=== PATIENT | female | born 1960 | race Caucasian/White ===

== ENCOUNTER 2017-09-05 05:45 | Day surgery (SDC) | payer OTHER ==
[2017-09-04 17:52] VITALS: BMI 18.0
[2017-09-05] MEDS ORDERED: KETAMINE HCL 500 MG/10 ML VIAL ONE (07:02)
--- NOTE | 2017-09-05 07:21 | HP ---
Admitting History and Physical - Admission History of Present Illness: patient is a 56 y/o female with a past medical history of borderline personality disorder and etoh dependency. Patient presents for ect, she was recently discharged from [facility] on 09/04/17 following a 5 week admission. She received 18 ect treatment at [facility]. She reports multiple admission to psychiatric hospitals in the past. She denies any suicidal or homicidal ideation, visual or auditory hallucinations. History Source: Patient - Smoking History Smoking history: Current every day smoker Have you smoked in the past 12 months: Yes If you are a former smoker, when did you quit?: WAS IN HOSPITAL X 2 MONTHS, D/C TODAY SMOKED " A LITTLE " - Alcohol/Substance Use Hx Alcohol Use: No (DENIES) Home Medications - Allergies Allergies/Adverse Reactions: Allergies Allergy/AdvReac Type Severity Reaction Status Date / Time codeine Allergy Severe Swelling Verified 09/04/17 17:36 sulfamethoxazole Allergy Severe Rash Verified 09/04/17 17:36 [From Bactrim] trimethoprim [From Bactrim] Allergy Severe Rash Verified 09/04/17 17:36 - Home Medications Home Medications: Ambulatory Orders Lamotrigine [Lamictal] 25 mg PO DAILY 09/04/17 [place] Carbonate [Eskalith -] 450 mg PO DAILY 09/04/17 Multivitamins [Tab-A-Vit -] 1 tab PO DAILY 09/04/17 Trazodone HCl 100 mg PO HS 09/04/17 Family Disease History - Family Disease History Family Disease History: Heart Disease: Father (, alcoholism), Other: Mother (cancer, ), Sister (alive, cancer) Review of Systems - Review of Systems Constitutional: reports: No Symptoms Eyes: reports: No Symptoms HENT: reports: No Symptoms Neck: reports: No Symptoms Cardiovascular: reports: No Symptoms Respiratory: reports: No Symptoms Gastrointestinal: reports: No Symptoms Genitourinary: reports: No Symptoms Musculoskeletal: reports: No Symptoms Integumentary: reports: No Symptoms Neurological: reports: No Symptoms Endocrine: reports: No Symptoms Hematology/Lymphatic: reports: No Symptoms Psychiatric: reports: Anxiety Physical Examination Vital Signs: Vital Signs Temperature 97.8 F 09/05/17 06:07 Pulse Rate 69 09/05/17 06:07 Respiratory Rate 18 09/05/17 06:07 Blood Pressure 118/65 09/05/17 06:07 O2 Sat by Pulse Oximetry (%) 98 09/05/17 06:07 Constitutional: Yes: Well Nourished, No Distress, Calm Eyes: Yes: WNL, Conjunctiva Clear, EOM Intact HENT: Yes: WNL, Atraumatic, Normocephalic Neck: Yes: WNL, Supple, Trachea Midline Cardiovascular: Yes: WNL, Regular Rate and Rhythm, S1, S2 Respiratory: Yes: WNL, Regular, CTA Bilaterally Gastrointestinal: Yes: WNL, Normal Bowel Sounds, Soft ...Rectal Exam: Yes: Deferred Renal/: Yes: WNL Breast(s): Yes: WNL Musculoskeletal: Yes: WNL Extremities: Yes: WNL Edema: No Peripheral Pulses WNL: Yes Integumentary: Yes: WNL Neurological: Yes: WNL, Alert, Oriented ...Motor Strength: WNL Psychiatric: Yes: WNL, Alert, Oriented, Agitated, Other Labs: 07/14 Imaging - Results EKG: Image Reviewed, Other (nsr) Assessment/Plan patient is a 56 y/o female that presents for ect, labs and ekg reviewed patient is medically optimized for procedure informed consent, risks/benefits to be obtained by Dr Forrest
[2017-09-05] MEDS ORDERED: ONDANSETRON 4 MG/2 ML VIAL IVPUSH PRN (08:09)
[2017-09-05 08:43] VITALS: TEMP 98.1
[2017-09-05 10:12] VITALS: BP 120/70; PULSE 63
== END 2017-09-05 09:10 | disposition home or self-care (01) ==
LOC: FECT 05:45
PROVIDERS: ATTEND Psychiatry & Neurology Psychiatry
PROC: GZB4ZZZ Other Electroconvulsive Therapy (ICD-10-PCS; principal; 2017-09-05 07:15)
DX: F33.2 Major depressive disorder, recurrent severe without psychotic features (principal)
CPT/HCPCS: 90870; 94760

== ENCOUNTER 2017-09-09 05:43 | Day surgery (SDC) | payer OTHER ==
[2017-09-05 10:52] VITALS: BMI 18.0
[2017-09-09] MEDS ORDERED: KETAMINE HCL 500 MG/10 ML VIAL ONE (07:29)
[2017-09-09 08:26] VITALS: PULSE 76; TEMP 98.1
[2017-09-09 08:53] VITALS: BP 132/68
[2017-09-09] MEDS ORDERED: ONDANSETRON 4 MG/2 ML VIAL IVPUSH PRN (13:05)
[2017-09-09] MEDS ORDERED: LACTATED RINGERS SOLUTION 1,000 ML IV SCH (13:15)
== END 2017-09-09 08:55 | disposition home or self-care (01) ==
LOC: FECT 05:43
PROVIDERS: ATTEND Psychiatry & Neurology Psychiatry
PROC: GZB4ZZZ Other Electroconvulsive Therapy (ICD-10-PCS; principal; 2017-09-09 07:30)
DX: F33.2 Major depressive disorder, recurrent severe without psychotic features (principal)
CPT/HCPCS: 90870; 94760

== ENCOUNTER 2017-09-12 05:43 | Day surgery (SDC) | payer OTHER ==
[2017-09-09 13:34] VITALS: BMI 18.0
[2017-09-12] MEDS ORDERED: KETAMINE HCL 500 MG/10 ML VIAL ONE (06:59)
[2017-09-12 07:57] VITALS: TEMP 99
[2017-09-12] MEDS ORDERED: ONDANSETRON 4 MG/2 ML VIAL IVPUSH PRN (08:30)
[2017-09-12] MEDS ORDERED: PROMETHAZINE HCL 25 MG/1 ML VIAL IVPUSH PRN (08:30)
[2017-09-12] MEDS ORDERED: LACTATED RINGERS SOLUTION 1,000 ML IV SCH (08:30)
[2017-09-12 08:41] VITALS: BP 112/66; PULSE 66
== END 2017-09-12 08:30 | disposition home or self-care (01) ==
LOC: FECT 05:43
PROVIDERS: ATTEND Psychiatry & Neurology Psychiatry
PROC: GZB4ZZZ Other Electroconvulsive Therapy (ICD-10-PCS; principal; 2017-09-12 07:15)
DX: F33.2 Major depressive disorder, recurrent severe without psychotic features (principal)
CPT/HCPCS: 90870; 94760

== ENCOUNTER 2017-09-16 05:46 | Day surgery (SDC) | payer OTHER ==
[2017-09-12 12:37] VITALS: BMI 18.0
[2017-09-16] MEDS ORDERED: KETAMINE HCL 500 MG/10 ML VIAL ONE (07:06)
[2017-09-16 07:56] VITALS: TEMP 98.8
[2017-09-16 08:26] VITALS: BP 128/66; PULSE 71
[2017-09-16] MEDS ORDERED: ONDANSETRON 4 MG/2 ML VIAL IVPUSH PRN (12:57)
[2017-09-16] MEDS ORDERED: LACTATED RINGERS SOLUTION 1,000 ML IV SCH (13:00)
== END 2017-09-16 08:45 | disposition home or self-care (01) ==
LOC: FECT 05:46
PROVIDERS: ATTEND Psychiatry & Neurology Psychiatry
PROC: GZB4ZZZ Other Electroconvulsive Therapy (ICD-10-PCS; principal; 2017-09-16 07:45)
DX: F33.2 Major depressive disorder, recurrent severe without psychotic features (principal)
CPT/HCPCS: 90870; 94760

== ENCOUNTER 2017-09-20 05:46 | Day surgery (SDC) | payer OTHER ==
[2017-09-16 12:06] VITALS: BMI 24.3
[2017-09-20] MEDS ORDERED: KETAMINE HCL 500 MG/10 ML VIAL ONE (07:04)
[2017-09-20] MEDS ORDERED: ONDANSETRON 4 MG/2 ML VIAL IVPUSH PRN (08:57)
[2017-09-20] MEDS ORDERED: LACTATED RINGERS SOLUTION 1,000 ML IV SCH (09:00)
[2017-09-20 09:01] VITALS: BP 129/68; PULSE 62; TEMP 97.9
== END 2017-09-20 09:05 | disposition home or self-care (01) ==
LOC: FECT 05:46
PROVIDERS: ATTEND Psychiatry & Neurology Psychiatry
PROC: GZB4ZZZ Other Electroconvulsive Therapy (ICD-10-PCS; principal; 2017-09-20 08:00)
DX: F33.2 Major depressive disorder, recurrent severe without psychotic features (principal)
CPT/HCPCS: 90870; 94760

== ENCOUNTER 2017-09-24 05:49 | Day surgery (SDC) | payer OTHER ==
[2017-09-23 09:02] VITALS: BMI 24.3
[2017-09-24 06:16] VITALS: TEMP 98.4
[2017-09-24] MEDS ORDERED: KETAMINE HCL 500 MG/10 ML VIAL ONE (07:22)
[2017-09-24 08:55] VITALS: BP 112/61; PULSE 64
== END 2017-09-24 09:00 | disposition home or self-care (01) ==
LOC: FECT 05:49
PROVIDERS: ATTEND Psychiatry & Neurology Psychiatry
PROC: GZB4ZZZ Other Electroconvulsive Therapy (ICD-10-PCS; principal; 2017-09-24 08:30)
DX: F33.2 Major depressive disorder, recurrent severe without psychotic features (principal)
CPT/HCPCS: 90870; 94760

== ENCOUNTER 2017-10-02 05:45 | Day surgery (SDC) | payer OTHER ==
[2017-10-02 06:08] VITALS: BMI 24.3
[2017-10-02] MEDS ORDERED: KETAMINE HCL 500 MG/10 ML VIAL ONE (06:58)
[2017-10-02 07:52] VITALS: TEMP 97.8
[2017-10-02 08:18] VITALS: BP 124/74; PULSE 70
== END 2017-10-02 08:22 | disposition home or self-care (01) ==
LOC: FECT 05:45
PROVIDERS: ATTEND Psychiatry & Neurology Psychiatry
PROC: GZB4ZZZ Other Electroconvulsive Therapy (ICD-10-PCS; principal; 2017-10-02 07:15)
DX: F33.2 Major depressive disorder, recurrent severe without psychotic features (principal)
CPT/HCPCS: 90870; 94760

== ENCOUNTER 2017-10-09 05:44 | Day surgery (SDC) | payer OTHER ==
[2017-10-04 12:48] VITALS: BMI 24.3
--- NOTE | 2017-10-09 07:09 | HP ---
Admitting History and Physical - Admission History of Present Illness: patient is a 56 y/o female with a past medical history of borderline personality disorder and etoh dependency. Patient reports no improvement in anxiety since starting ect, she denies any changes in medications or recent illnesses. Patient is extremely anxious throughout the exam and reluctant to answer questions. History Source: Patient Limitations to Obtaining History: No Limitations - Smoking History Smoking history: Current every day smoker Have you smoked in the past 12 months: Yes If you are a former smoker, when did you quit?: WAS IN HOSPITAL X 2 MONTHS, D/C TODAY SMOKED " A LITTLE " - Alcohol/Substance Use Hx Alcohol Use: No History of Substance Use: reports: None - Social History Usual Living Arrangement: Yes: With Spouse ADL: Independent History of Recent Travel: No Home Medications - Allergies Allergies/Adverse Reactions: Allergies Allergy/AdvReac Type Severity Reaction Status Date / Time codeine Allergy Severe Swelling Verified 09/04/17 17:36 sulfamethoxazole Allergy Severe Rash Verified 09/04/17 17:36 [From Bactrim] trimethoprim [From Bactrim] Allergy Severe Rash Verified 09/04/17 17:36 - Home Medications Home Medications: Ambulatory Orders Lamotrigine [Lamictal] 200 mg PO HS 09/04/17 [place] Carbonate [Eskalith -] 450 mg PO HS 09/04/17 Multivitamins [Multivit ([facility] Formulary)] 1 tab PO DAILY 09/04/17 Trazodone HCl 200 mg PO HS 09/04/17 Hydroxyzine HCl [Atarax -] 25 mg PO QID PRN 09/20/17 Trazodone HCl 100 mg PO PRN PRN 09/20/17 Family Disease History - Family Disease History Family Disease History: Heart Disease: Father (, alcoholism), Other: Mother (cancer, ), Sister (alive, cancer) Review of Systems - Review of Systems Constitutional: reports: No Symptoms Eyes: reports: No Symptoms HENT: reports: No Symptoms Neck: reports: No Symptoms Cardiovascular: reports: No Symptoms Respiratory: reports: No Symptoms Gastrointestinal: reports: No Symptoms Genitourinary: reports: No Symptoms Musculoskeletal: reports: No Symptoms Integumentary: reports: No Symptoms Neurological: reports: No Symptoms Endocrine: reports: No Symptoms Hematology/Lymphatic: reports: No Symptoms Psychiatric: reports: Anxiety Physical Examination Vital Signs: Vital Signs Temperature 98.3 F 12/13/17 06:23 Pulse Rate 62 10/09/17 06:23 Respiratory Rate 18 10/09/17 06:23 Blood Pressure 109/59 10/09/17 06:23 O2 Sat by Pulse Oximetry (%) 100 10/09/17 06:23 Constitutional: Yes: Well Nourished, No Distress, Calm Eyes: Yes: WNL, Conjunctiva Clear, EOM Intact HENT: Yes: WNL, Atraumatic, Normocephalic Neck: Yes: WNL, Supple, Trachea Midline Cardiovascular: Yes: WNL, Regular Rate and Rhythm, S1, S2 Respiratory: Yes: WNL, Regular, CTA Bilaterally Gastrointestinal: Yes: WNL, Normal Bowel Sounds, Soft ...Rectal Exam: Yes: Deferred Renal/: Yes: WNL Breast(s): Yes: WNL Musculoskeletal: Yes: WNL Extremities: Yes: WNL Edema: No Peripheral Pulses WNL: Yes Peripheral Pulses: Left Radial: 4+, Right Radial: 4+, Left Doralis Pedis: 3+, Right Dorsalis Pedis: 3+, Left Femoral: 3+, Right Femoral: 3+ Integumentary: Yes: WNL Neurological: Yes: WNL, Alert, Oriented, Other (fine hand tremors noted billateraly) ...Motor Strength: WNL Psychiatric: Yes: WNL, Alert, Oriented, Agitated Labs: reviewed 09/13 Imaging - Results EKG: Image Reviewed, Other (nsr no ectoy noted) Assessment/Plan patient is a 57 y/o female that presents for ect, labs and ekg reviewed, patient is extremely anxious throughout exam with fine hand tremors noted bilaterally to upper extremities, patient is extremely reluctant to answer questions in regards to alcohol use, case discused with Dr Forrest. patient is moderate risk for procedure. informed consent/risks/benefits to be obtained by Dr Forrest.
[2017-10-09 08:19] VITALS: TEMP 98.7
[2017-10-09 08:41] VITALS: BP 110/66; PULSE 61
== END 2017-10-09 08:40 | disposition home or self-care (01) ==
LOC: FECT 05:44
PROVIDERS: ATTEND Psychiatry & Neurology Psychiatry
PROC: GZB4ZZZ Other Electroconvulsive Therapy (ICD-10-PCS; principal; 2017-10-09 07:30)
DX: F33.2 Major depressive disorder, recurrent severe without psychotic features (principal)
CPT/HCPCS: 90870; 94760

== ENCOUNTER 2017-10-17 06:10 | Day surgery (SDC) | payer OTHER ==
[2017-10-10 15:07] VITALS: BMI 24.3
[2017-10-17 08:33] VITALS: TEMP 97.8
[2017-10-17 09:09] VITALS: BP 120/72; PULSE 64
[2017-10-17] MEDS ORDERED: ONDANSETRON 4 MG/2 ML VIAL IVPUSH PRN (09:35)
[2017-10-17] MEDS ORDERED: PROMETHAZINE HCL 25 MG/1 ML VIAL IVPB PRN (09:35)
[2017-10-17] MEDS ORDERED: LACTATED RINGERS SOLUTION 1,000 ML IV SCH (09:45)
== END 2017-10-17 09:22 | disposition home or self-care (01) ==
LOC: FECT 06:10
PROVIDERS: ATTEND Psychiatry & Neurology Psychiatry
PROC: GZB4ZZZ Other Electroconvulsive Therapy (ICD-10-PCS; principal; 2017-10-17 08:15)
DX: F33.2 Major depressive disorder, recurrent severe without psychotic features (principal)
CPT/HCPCS: 90870; 94760

== ENCOUNTER 2017-10-24 05:48 | Day surgery (SDC) | payer OTHER ==
[2017-10-18 13:23] VITALS: BMI 24.3
[2017-10-24] MEDS ORDERED: KETAMINE HCL 500 MG/10 ML VIAL ONE (06:56)
[2017-10-24] MEDS ORDERED: oxyCODONE HCL 5 MG TABLET PO PRN (07:08)
[2017-10-24] MEDS ORDERED: LACTATED RINGERS SOLUTION 1,000 ML IV SCH (07:15)
[2017-10-24 08:13] VITALS: TEMP 97.9
[2017-10-24 08:51] VITALS: BP 133/73; PULSE 77
== END 2017-10-24 08:30 | disposition home or self-care (01) ==
LOC: FECT 05:48
PROVIDERS: ATTEND Psychiatry & Neurology Psychiatry
PROC: GZB4ZZZ Other Electroconvulsive Therapy (ICD-10-PCS; principal; 2017-10-24 08:15)
DX: F33.2 Major depressive disorder, recurrent severe without psychotic features (principal)
CPT/HCPCS: 90870; 94760

== ENCOUNTER 2017-11-05 05:48 | Day surgery (SDC) | payer OTHER ==
[2017-10-25 11:20] VITALS: BMI 24.3
[2017-11-05 07:08] VITALS: TEMP 98.3
[2017-11-05] MEDS ORDERED: KETAMINE HCL 500 MG/10 ML VIAL ONE (08:10)
[2017-11-05 10:11] VITALS: BP 122/72; PULSE 86
== END 2017-11-05 09:55 | disposition home or self-care (01) ==
LOC: FECT 05:48
PROVIDERS: ATTEND Psychiatry & Neurology Psychiatry
PROC: GZB4ZZZ Other Electroconvulsive Therapy (ICD-10-PCS; principal; 2017-11-05 08:30)
DX: F33.2 Major depressive disorder, recurrent severe without psychotic features (principal)
CPT/HCPCS: 90870; 94760

== ENCOUNTER 2017-11-12 05:41 | Day surgery (SDC) | payer OTHER ==
[2017-11-07 10:24] VITALS: BMI 24.3
--- NOTE | 2017-11-12 06:58 | HP ---
Admitting History and Physical - Admission History of Present Illness: patient is a 57 y/o female with borderline personality disorder and etoh dependency. Patient presents for ect, her last ect was 11/05/17. Patient reports feeling much improved since starting ECT, she denies any changes in medications, patient denies any recent illnesses or hospitalizations. She denies any suicidal or homicidal ideation, visual or auditory hallucinations. History Source: Patient Limitations to Obtaining History: No Limitations - Smoking History Smoking history: Current every day smoker Have you smoked in the past 12 months: Yes If you are a former smoker, when did you quit?: WAS IN HOSPITAL X 2 MONTHS, D/C TODAY SMOKED " A LITTLE " - Alcohol/Substance Use Hx Alcohol Use: No History of Substance Use: reports: None - Social History Usual Living Arrangement: Yes: With Spouse ADL: Independent History of Recent Travel: No Home Medications - Allergies Allergies/Adverse Reactions: Allergies Allergy/AdvReac Type Severity Reaction Status Date / Time codeine Allergy Severe Swelling Verified 09/04/17 17:36 sulfamethoxazole Allergy Severe Rash Verified 09/04/17 17:36 [From Bactrim] trimethoprim [From Bactrim] Allergy Severe Rash Verified 09/04/17 17:36 - Home Medications Home Medications: Ambulatory Orders Lamotrigine [Lamictal] 200 mg PO HS 09/04/17 [place] Carbonate [Eskalith -] 450 mg PO HS 09/04/17 Multivitamins [Multivit ([facility] Formulary)] 1 tab PO DAILY 09/04/17 Trazodone HCl 200 mg PO HS 09/04/17 Lurasidone HCl [Latuda -] 20 mg PO HS 11/05/17 Family Disease History - Family Disease History Family Disease History: Heart Disease: Father (, alcoholism), Other: Mother (cancer, ), Sister (alive, cancer) Review of Systems - Review of Systems Constitutional: reports: No Symptoms Eyes: reports: No Symptoms HENT: reports: No Symptoms Neck: reports: No Symptoms Cardiovascular: reports: No Symptoms Respiratory: reports: No Symptoms Gastrointestinal: reports: No Symptoms Genitourinary: reports: No Symptoms Musculoskeletal: reports: No Symptoms Integumentary: reports: No Symptoms Neurological: reports: No Symptoms Endocrine: reports: No Symptoms Hematology/Lymphatic: reports: No Symptoms Psychiatric: reports: No Symptoms Physical Examination Constitutional: Yes: Well Nourished, No Distress, Calm Eyes: Yes: WNL, Conjunctiva Clear, EOM Intact HENT: Yes: WNL, Atraumatic, Normocephalic Neck: Yes: WNL, Supple, Trachea Midline Cardiovascular: Yes: WNL, Regular Rate and Rhythm, S1, S2 Respiratory: Yes: WNL, Regular, CTA Bilaterally Gastrointestinal: Yes: WNL, Normal Bowel Sounds, Soft ...Rectal Exam: Yes: Deferred Renal/: Yes: WNL Breast(s): Yes: WNL Musculoskeletal: Yes: WNL Extremities: Yes: WNL Edema: No Peripheral Pulses WNL: Yes Peripheral Pulses: Left Radial: 4+, Right Radial: 4+, Left Doralis Pedis: 3+, Right Dorsalis Pedis: 3+, Left Femoral: 3+, Right Femoral: 3+ Integumentary: Yes: WNL Neurological: Yes: WNL, Alert, Oriented ...Motor Strength: WNL Psychiatric: Yes: WNL, Alert, Oriented Labs: labs reviewed, 09/04/17 Imaging - Results EKG: Report Reviewed, Image Reviewed, Other (nsr) Assessment/Plan patient is a 57 y/o female that presents for ect, labs and ekg reviewed patient is medically optimized for procedure informed consent, risks/benefits to be obtained by Dr Forrest
[2017-11-12] MEDS ORDERED: KETAMINE HCL 500 MG/10 ML VIAL ONE (07:59)
[2017-11-12 09:32] VITALS: TEMP 98.2
[2017-11-12 09:55] VITALS: BP 120/70; PULSE 66
== END 2017-11-12 09:57 | disposition home or self-care (01) ==
LOC: FECT 05:41
PROVIDERS: ATTEND Psychiatry & Neurology Psychiatry
PROC: GZB4ZZZ Other Electroconvulsive Therapy (ICD-10-PCS; principal; 2017-11-12 07:30)
DX: F33.2 Major depressive disorder, recurrent severe without psychotic features (principal)
CPT/HCPCS: 90870; 94760

== ENCOUNTER 2017-11-19 05:37 | Day surgery (SDC) | payer OTHER ==
[2017-11-19 05:55] VITALS: BMI 18.4
[2017-11-19] MEDS ORDERED: KETAMINE HCL 500 MG/10 ML VIAL ONE (06:55)
[2017-11-19 07:57] VITALS: TEMP 98
[2017-11-19 08:30] VITALS: BP 115/70; PULSE 66
[2017-11-19] MEDS ORDERED: ACETAMINOPHEN 325 MG TABLET (FP) PO PRN (08:36)
[2017-11-19] MEDS ORDERED: PROMETHAZINE HCL 25 MG/1 ML VIAL IVPUSH PRN (08:36)
[2017-11-19] MEDS ORDERED: ONDANSETRON 4 MG/2 ML VIAL IVPUSH PRN (08:36)
[2017-11-19] MEDS ORDERED: LACTATED RINGERS SOLUTION 1,000 ML IV SCH (08:45)
== END 2017-11-19 08:25 | disposition home or self-care (01) ==
LOC: FECT 05:37
PROVIDERS: ATTEND Psychiatry & Neurology Psychiatry
PROC: GZB4ZZZ Other Electroconvulsive Therapy (ICD-10-PCS; principal; 2017-11-19 07:15)
DX: F33.2 Major depressive disorder, recurrent severe without psychotic features (principal)
CPT/HCPCS: 90870; 94760

== ENCOUNTER 2017-12-03 05:51 | Day surgery (SDC) | payer OTHER ==
[2017-11-25 13:09] VITALS: BMI 18.4
[2017-12-03 06:12] VITALS: TEMP 97.9
[2017-12-03] MEDS ORDERED: KETAMINE HCL 500 MG/10 ML VIAL ONE (07:04)
[2017-12-03 08:12] VITALS: BP 123/81; PULSE 80
== END 2017-12-03 08:25 | disposition home or self-care (01) ==
LOC: FECT 05:51
PROVIDERS: ATTEND Psychiatry & Neurology Psychiatry
PROC: GZB4ZZZ Other Electroconvulsive Therapy (ICD-10-PCS; principal; 2017-12-03 08:00)
DX: F33.2 Major depressive disorder, recurrent severe without psychotic features (principal)
CPT/HCPCS: 90870; 94760

== ENCOUNTER 2017-12-17 05:45 | Day surgery (SDC) | payer OTHER ==
[2017-12-06 11:16] VITALS: BMI 18.4
--- NOTE | 2017-12-17 06:49 | HP ---
- Admission History of Present Illness: This is a 57 year old female with PMHx of borderline personality disorder and etoh dependency. The patient presents for ECT (last one 11/12/17). The patient reports she continues to improve since beginning ECT. The patient denies any recent illnesses, recent hospitalizations, changes in medications, chest pain, palpitations, urinary symptoms, nausea, vomiting, diarrhea. She denies any suicidal or homicidal ideation, visual or auditory hallucinations. History Source: Patient Limitations to Obtaining History: No Limitations - Smoking History Smoking history: Current every day smoker Have you smoked in the past 12 months: Yes If you are a former smoker, when did you quit?: WAS IN HOSPITAL X 2 MONTHS, D/C TODAY SMOKED " A LITTLE " - Alcohol/Substance Use Hx Alcohol Use: No History of Substance Use: reports: None - Social History Usual Living Arrangement: Yes: With Spouse ADL: Independent History of Recent Travel: No Home Medications - Allergies Allergies/Adverse Reactions: Allergies Allergy/AdvReac Type Severity Reaction Status Date / Time codeine Allergy Severe Swelling Verified 09/04/17 17:36 sulfamethoxazole Allergy Severe Rash Verified 09/04/17 17:36 [From Bactrim] trimethoprim [From Bactrim] Allergy Severe Rash Verified 09/04/17 17:36 - Home Medications Home Medications: Ambulatory Orders Lamotrigine [Lamictal] 200 mg PO HS 09/04/17 [place] Carbonate [Eskalith -] 450 mg PO HS 09/04/17 Multivitamins [Multivit ([facility] Formulary)] 1 tab PO DAILY 09/04/17 Trazodone HCl 200 mg PO HS 09/04/17 Lurasidone HCl [Latuda -] 20 mg PO HS 11/05/17 Family Disease History - Family Disease History Family Disease History: Heart Disease: Father (, alcoholism), Other: Mother (cancer, ), Sister (alive, cancer) Review of Systems - Review of Systems Constitutional: reports: No Symptoms Eyes: reports: No Symptoms HENT: reports: No Symptoms Neck: reports: No Symptoms Cardiovascular: reports: No Symptoms Respiratory: reports: No Symptoms Gastrointestinal: reports: No Symptoms Genitourinary: reports: No Symptoms Musculoskeletal: reports: No Symptoms Integumentary: reports: No Symptoms Neurological: reports: No Symptoms Endocrine: reports: No Symptoms Hematology/Lymphatic: reports: No Symptoms Psychiatric: reports: No Symptoms Physical Examination Constitutional: Yes: Well Nourished, No Distress, Calm Eyes: Yes: WNL, Conjunctiva Clear, EOM Intact HENT: Yes: WNL, Atraumatic, Normocephalic Neck: Yes: WNL, Supple, Trachea Midline Cardiovascular: Yes: WNL, Regular Rate and Rhythm, S1, S2 Respiratory: Yes: WNL, Regular, CTA Bilaterally Gastrointestinal: Yes: WNL, Normal Bowel Sounds, Soft ...Rectal Exam: Yes: Deferred Renal/: Yes: WNL Breast(s): Yes: WNL Musculoskeletal: Yes: WNL Extremities: Yes: WNL Edema: No Peripheral Pulses WNL: Yes Peripheral Pulses: Left Radial: 4+, Right Radial: 4+, Left Doralis Pedis: 3+, Right Dorsalis Pedis: 3+, Left Femoral: 3+, Right Femoral: 3+ Integumentary: Yes: WNL Neurological: Yes: WNL, Alert, Oriented ...Motor Strength: WNL Psychiatric: Yes: WNL, Alert, Oriented Labs: labs reviewed, 09/04/17 Imaging - Results EKG: Report Reviewed, Image Reviewed, Other (nsr) Assessment/Plan This is a 57 year old female with PMHx of borderline personality disorder and etoh dependency who presented for ECT Plan: 1) No evidence of acute alcohol withdrawal 2) Labs and EKG reviewed from 06/2017, repeat labs and EKG prior to next ECT treatment in December 3) No recent hospitalizations or recent changes to medications 4) Patient medically optimized for procedure 5) Informed consent, risks/benefits to be obtained by Dr. Forrest Visit type - Emergency Visit Emergency Visit: Yes Care time: The patient presented to the Emergency Department on the above date and was hospitalized for further evaluation of their emergent condition. - New Patient This patient is new to me today: Yes Date on this admission: 12/17/17 - Critical Care Critical Care patient: No
[2017-12-17] MEDS ORDERED: KETAMINE HCL 500 MG/10 ML VIAL ONE (07:37)
[2017-12-17] MEDS ORDERED: PROMETHAZINE HCL 25 MG/1 ML VIAL IVPUSH PRN (08:04)
[2017-12-17 08:41] VITALS: TEMP 97.7
[2017-12-17 09:16] VITALS: BP 120/70; PULSE 66
== END 2017-12-17 09:00 | disposition home or self-care (01) ==
LOC: FECT 05:45
PROVIDERS: ATTEND Psychiatry & Neurology Psychiatry
PROC: GZB4ZZZ Other Electroconvulsive Therapy (ICD-10-PCS; principal; 2017-12-17 07:15)
DX: F33.2 Major depressive disorder, recurrent severe without psychotic features (principal)

== ENCOUNTER 2018-01-17 05:45 | Day surgery (SDC) | payer OTHER ==
[2018-01-17 06:17] VITALS: PULSE 66; TEMP 98; BMI 18.4
--- NOTE | 2018-01-17 06:46 | HP ---
Admitting History and Physical - Admission History of Present Illness: Patient is a 57 y/o female with a past medical history of borderline personallity disorder and etoh dependency. Patient presents for ect, her last ect was 12/17/17. patient denies any changes to medications. He denies any recent illness or hospitalizations. Patient reports a significant improvement in depressive and anxiety since starting ect. She denies any suicidal or homicidal ideation, visual or auditory hallucinations. History Source: Patient Limitations to Obtaining History: No Limitations - Smoking History Smoking history: Current some day smoker Have you smoked in the past 12 months: Yes If you are a former smoker, when did you quit?: WAS IN HOSPITAL X 2 MONTHS, D/C TODAY SMOKED " A LITTLE " - Alcohol/Substance Use Hx Alcohol Use: No History of Substance Use: reports: None - Social History Usual Living Arrangement: Yes: With Spouse ADL: Independent History of Recent Travel: No Home Medications - Allergies Allergies/Adverse Reactions: Allergies Allergy/AdvReac Type Severity Reaction Status Date / Time codeine Allergy Severe Swelling Verified 09/04/17 17:36 sulfamethoxazole Allergy Severe Rash Verified 09/04/17 17:36 [From Bactrim] trimethoprim [From Bactrim] Allergy Severe Rash Verified 09/04/17 17:36 - Home Medications Home Medications: Ambulatory Orders Lamotrigine [Lamictal] 200 mg PO HS 09/04/17 [place] Carbonate [Eskalith -] 450 mg PO HS 09/04/17 Multivitamins [Multivit ([facility] Formulary)] 1 tab PO DAILY 09/04/17 Trazodone HCl 200 mg PO HS 09/04/17 Lurasidone HCl [Latuda -] 20 mg PO HS 11/05/17 Family Disease History - Family Disease History Family Disease History: Heart Disease: Father (, alcoholism), Other: Mother (cancer, ), Sister (alive, cancer) Review of Systems - Review of Systems Constitutional: reports: No Symptoms Eyes: reports: No Symptoms HENT: reports: No Symptoms Neck: reports: No Symptoms Cardiovascular: reports: No Symptoms Respiratory: reports: No Symptoms Gastrointestinal: reports: No Symptoms Genitourinary: reports: No Symptoms Musculoskeletal: reports: No Symptoms Integumentary: reports: No Symptoms Neurological: reports: No Symptoms Endocrine: reports: No Symptoms Hematology/Lymphatic: reports: No Symptoms Psychiatric: reports: No Symptoms Physical Examination Vital Signs: Vital Signs Temperature 98.0 F 01/17/18 06:12 Pulse Rate 66 01/17/18 06:12 Respiratory Rate 18 01/17/18 06:12 Blood Pressure 97/61 01/17/18 06:12 O2 Sat by Pulse Oximetry (%) 100 01/17/18 06:12 Constitutional: Yes: Well Nourished, No Distress, Calm Eyes: Yes: WNL, Conjunctiva Clear, EOM Intact HENT: Yes: WNL, Atraumatic, Normocephalic Neck: Yes: WNL, Supple, Trachea Midline Cardiovascular: Yes: WNL, Regular Rate and Rhythm, S1, S2 Respiratory: Yes: WNL, Regular, CTA Bilaterally Gastrointestinal: Yes: WNL, Normal Bowel Sounds, Soft ...Rectal Exam: Yes: Deferred Renal/: Yes: WNL Breast(s): Yes: WNL Musculoskeletal: Yes: WNL Extremities: Yes: WNL Edema: No Peripheral Pulses WNL: Yes Peripheral Pulses: Left Radial: 4+, Right Radial: 4+, Left Doralis Pedis: 3+, Right Dorsalis Pedis: 3+, Left Femoral: 3+, Right Femoral: 3+ Integumentary: Yes: WNL Neurological: Yes: WNL, Alert, Oriented ...Motor Strength: WNL Psychiatric: Yes: WNL, Alert, Oriented Imaging - Results EKG: Other (sinus bradycardia) Assessment/Plan patient is a 57 y/o female, that presents for ect, labs and ekg reviewed. patient is medically optimized for procedure informed consent, risks/benefits to be obtained by Dr Forrest.
[2018-01-17 07:19] LABS: BASO % 1.3 % (0-2.0); EOS % 3.7 % (0-4.5); HEMATOCRIT 39.6 % (32.4-45.2); HEMOGLOBIN 13.6 GM/dl (10.7-15.3); LYMPH % 26.9 % (8-40); MCH 30.7 pg (25.7-33.7); MCHC 34.3 g/dl (32.0-36.0); MEAN CELL VOLUME 89.3 fl (80-96); MEAN PLT VOLUME 8.6 fl (7.5-11.1); MONO % 8.9 % (3.8-10.2); NEUT % 59.2 % (42.8-82.8); PLATELET COUNT 326 K/MM3 (134-434); RBC 4.43 M/mm3 (3.60-5.2); RDW 12.6 % (11.6-15.6)
[2018-01-17] MEDS ORDERED: KETAMINE HCL 500 MG/10 ML VIAL ONE (07:29)
[2018-01-17 07:44] LABS: ALBUMIN 4.1 g/dl (3.5-5.0); ALK PHOS 56 U/L (32-92); ANION GAP 4 (8-16); BILIRUBIN,TOTAL 0.5 mg/dl (0.2-1.0); BLOOD UREA NITROGEN 20 mg/dl (7-18); CHLORIDE 105 mmol/L (98-107); CO2 24 mmol/L (22-28); CREATININE 0.8 mg/dl (0.6-1.3); GLUCOSE,RANDOM 89 mg/dl (74-106); POTASSIUM 4.1 mmol/L (3.5-5.1); SGOT/AST 21 U/L (10-42); SGPT/ALT 14 U/L (10-40); SODIUM 133 mmol/L (136-145); TOT PROT 6.8 g/dl (6.4-8.3)
[2018-01-17] MEDS ORDERED: PROMETHAZINE HCL 25 MG/1 ML VIAL IVPB PRN (08:37)
[2018-01-17] MEDS ORDERED: ACETAMINOPHEN 325 MG TABLET (FP) PO PRN (08:37)
[2018-01-17 08:58] VITALS: BP 126/72
--- NOTE | 2018-01-19 22:01 | EKG ---
Test Reason : Blood Pressure : / mmHG Vent. Rate : 057 BPM Atrial Rate : 057 BPM P-R Int : 152 ms QRS Dur : 082 ms QT Int : 460 ms P-R-T Axes : 070 047 043 degrees QTc Int : 447 ms SINUS BRADYCARDIA OTHERWISE NORMAL ECG NO PREVIOUS ECGS AVAILABLE Confirmed by ELOY MONTALVO MD ([id number]) on 01/19/2018 10:01:25 PM Referred By: Ramesh Forrest Confirmed By:ELOY MONTALVO MD
== END 2018-01-17 09:01 | disposition home or self-care (01) ==
LOC: FECT 05:45
PROVIDERS: ATTEND Psychiatry & Neurology Psychiatry
PROC: GZB4ZZZ Other Electroconvulsive Therapy (ICD-10-PCS; principal; 2018-01-17 07:45)
DX: F33.2 Major depressive disorder, recurrent severe without psychotic features (principal)
CPT/HCPCS: 36415; 80053; 85025; 90870; 93005; 94760

== ENCOUNTER 2018-01-31 05:41 | Day surgery (SDC) | payer OTHER ==
[2018-01-31 06:22] VITALS: BMI 19.1
[2018-01-31] MEDS ORDERED: KETAMINE HCL 500 MG/10 ML VIAL ONE (07:02)
[2018-01-31] MEDS ORDERED: ONDANSETRON 4 MG/2 ML VIAL IVPUSH PRN (07:44)
[2018-01-31] MEDS ORDERED: oxyCODONE HCL 5 MG TABLET PO PRN (07:44)
[2018-01-31] MEDS ORDERED: LACTATED RINGERS SOLUTION 1,000 ML IV SCH (07:45)
[2018-01-31 08:10] VITALS: TEMP 97.6
[2018-01-31 09:07] VITALS: BP 112/68; PULSE 78
== END 2018-01-31 09:09 | disposition home or self-care (01) ==
LOC: FECT 05:41
PROVIDERS: ATTEND Psychiatry & Neurology Psychiatry
PROC: GZB4ZZZ Other Electroconvulsive Therapy (ICD-10-PCS; principal; 2018-01-31 07:30)
DX: F33.2 Major depressive disorder, recurrent severe without psychotic features (principal)
CPT/HCPCS: 90870; 94760

== ENCOUNTER 2018-02-14 05:48 | Day surgery (SDC) | payer OTHER ==
[2018-02-14 06:14] VITALS: TEMP 97.6; BMI 19.1
[2018-02-14 08:45] VITALS: BP 122/67; PULSE 71
== END 2018-02-14 08:35 | disposition home or self-care (01) ==
LOC: FECT 05:48
PROVIDERS: ATTEND Psychiatry & Neurology Psychiatry
PROC: GZB4ZZZ Other Electroconvulsive Therapy (ICD-10-PCS; principal; 2018-02-14)
DX: F33.2 Major depressive disorder, recurrent severe without psychotic features (principal)
CPT/HCPCS: 90870; 94760

== ENCOUNTER 2018-02-27 06:30 | Day surgery (SDC) | payer OTHER ==
[2018-02-27 07:01] VITALS: BMI 19.3
--- NOTE | 2018-02-27 07:01 | HP ---
Admitting History and Physical - Admission History of Present Illness: Patient is a 57 y/o female, with a past medical history of borderline personality disorder and etoh dependency. Patient presents for ect, her last ect was 02/14/18. Patient reports a significant improvement in depressive symptoms since starting ect. She denies any recent illnesses or hospitalizations. Patient denies any changes to medications. She denies any suicidal or homicidal ideation, visual or auditory hallucinations. History Source: Patient Limitations to Obtaining History: No Limitations - Smoking History Smoking history: Current some day smoker Have you smoked in the past 12 months: Yes If you are a former smoker, when did you quit?: WAS IN HOSPITAL X 2 MONTHS, D/C TODAY SMOKED " A LITTLE " - Alcohol/Substance Use Hx Alcohol Use: No History of Substance Use: reports: None - Social History Usual Living Arrangement: Yes: With Spouse ADL: Independent History of Recent Travel: No Home Medications - Allergies Allergies/Adverse Reactions: Allergies Allergy/AdvReac Type Severity Reaction Status Date / Time codeine Allergy Severe Swelling Verified 09/04/17 17:36 sulfamethoxazole Allergy Severe Rash Verified 09/04/17 17:36 [From Bactrim] trimethoprim [From Bactrim] Allergy Severe Rash Verified 09/04/17 17:36 - Home Medications Home Medications: Ambulatory Orders Lamotrigine [Lamictal] 200 mg PO HS 09/04/17 [place] Carbonate [Eskalith -] 450 mg PO HS 09/04/17 Multivitamins [Multivit ([facility] Formul[facility])] 1 tab PO DAILY 09/04/17 Trazodone HCl 200 mg PO HS 09/04/17 Lurasidone HCl [Latuda -] 20 mg PO HS 11/05/17 Family Disease History - Family Disease History Family Disease History: Heart Disease: Father (, alcoholism), Other: Mother (cancer, ), Sister (alive, cancer) Review of Systems - Review of Systems Constitutional: reports: No Symptoms Eyes: reports: No Symptoms HENT: reports: No Symptoms Neck: reports: No Symptoms Cardiovascular: reports: No Symptoms Respiratory: reports: No Symptoms Gastrointestinal: reports: No Symptoms Genitourinary: reports: No Symptoms Musculoskeletal: reports: No Symptoms Integumentary: reports: No Symptoms Neurological: reports: No Symptoms Endocrine: reports: No Symptoms Hematology/Lymphatic: reports: No Symptoms Psychiatric: reports: No Symptoms Physical Examination Constitutional: Yes: Well Nourished, No Distress, Calm Eyes: Yes: WNL, Conjunctiva Clear, EOM Intact HENT: Yes: WNL, Atraumatic, Normocephalic Neck: Yes: WNL, Supple, Trachea Midline Cardiovascular: Yes: WNL, Regular Rate and Rhythm, S1, S2 Respiratory: Yes: WNL, Regular, CTA Bilaterally Gastrointestinal: Yes: WNL, Normal Bowel Sounds, Soft ...Rectal Exam: Yes: Deferred Renal/: Yes: WNL Breast(s): Yes: WNL Musculoskeletal: Yes: WNL Extremities: Yes: WNL Edema: No Peripheral Pulses WNL: Yes Peripheral Pulses: Left Radial: 4+, Right Radial: 4+, Left Doralis Pedis: 3+, Right Dorsalis Pedis: 3+, Left Femoral: 3+, Right Femoral: 3+ Integumentary: Yes: WNL Neurological: Yes: WNL, Alert, Oriented ...Motor Strength: WNL Psychiatric: Yes: WNL, Alert, Oriented Labs: reviewed 01/17/18 Imaging - Results EKG: Image Reviewed, Other (sinus bradycardia) Assessment/Plan Patient is a 57 y/o female that presents for ect, labs and ekg reviewed patient is medically optimized for procedure informed consent, risks/benefits to be obtained by Dr Forrest
[2018-02-27] MEDS ORDERED: KETAMINE HCL 500 MG/10 ML VIAL ONE (07:36)
[2018-02-27 08:44] VITALS: TEMP 97.9
[2018-02-27 09:02] VITALS: BP 122/72; PULSE 69
== END 2018-02-27 09:05 | disposition home or self-care (01) ==
LOC: FECT 06:30
PROVIDERS: ATTEND Psychiatry & Neurology Psychiatry
PROC: GZB4ZZZ Other Electroconvulsive Therapy (ICD-10-PCS; principal; 2018-02-27 07:30)
DX: F33.2 Major depressive disorder, recurrent severe without psychotic features (principal)
CPT/HCPCS: 90870; 94760

== ENCOUNTER 2018-03-18 05:45 | Day surgery (SDC) | payer OTHER ==
[2018-03-18 06:04] VITALS: BMI 19.5
[2018-03-18] MEDS ORDERED: KETAMINE HCL 500 MG/10 ML VIAL ONE (06:54)
[2018-03-18] MEDS ORDERED: ONDANSETRON 4 MG/2 ML VIAL IVPUSH PRN (07:20)
[2018-03-18] MEDS ORDERED: ACETAMINOPHEN 325 MG TABLET (FP) PO PRN (07:20)
[2018-03-18 08:27] VITALS: TEMP 97.7
[2018-03-18 08:28] VITALS: BP 121/73; PULSE 66
== END 2018-03-18 08:30 | disposition home or self-care (01) ==
LOC: FECT 05:45
PROVIDERS: ATTEND Psychiatry & Neurology Psychiatry
PROC: GZB4ZZZ Other Electroconvulsive Therapy (ICD-10-PCS; principal; 2018-03-18 08:15)
DX: F33.2 Major depressive disorder, recurrent severe without psychotic features (principal)
CPT/HCPCS: 90870; 94760

== ENCOUNTER 2018-04-01 05:36 | Day surgery (SDC) | payer OTHER ==
[2018-04-01 06:57] VITALS: BMI 19.5
--- NOTE | 2018-04-01 07:11 | HP ---
Admitting History and Physical - Admission History of Present Illness: Patient is a 57 y/o female with a past medical history of borderline personality disorder and etoh dependency. Patient presents for ect, her last ect was 03/23/18. Patient reports a significant improvement in depressive symptoms since starting ect. Patient denies any changes to medications, she reports compliance with prescribed medications. Patient denies any recent illnesses or hospitalizations. Patient denies any suicidal or homicidal ideation , visual or auditory hallucinations. History Source: Patient - Smoking History Smoking history: Current some day smoker Have you smoked in the past 12 months: Yes If you are a former smoker, when did you quit?: WAS IN HOSPITAL X 2 MONTHS, D/C TODAY SMOKED " A LITTLE " - Alcohol/Substance Use Hx Alcohol Use: No History of Substance Use: reports: None - Social History Usual Living Arrangement: Yes: With Significant Other ADL: Independent History of Recent Travel: No Home Medications - Allergies Allergies/Adverse Reactions: Allergies Allergy/AdvReac Type Severity Reaction Status Date / Time codeine Allergy Severe Swelling Verified 09/04/17 17:36 sulfamethoxazole Allergy Severe Rash Verified 09/04/17 17:36 [From Bactrim] trimethoprim [From Bactrim] Allergy Severe Rash Verified 09/04/17 17:36 - Home Medications Home Medications: Ambulatory Orders Lamotrigine [Lamictal] 200 mg PO HS 09/04/17 [place] Carbonate [Eskalith -] 450 mg PO HS 09/04/17 Multivitamins [Multivit ([facility])] 1 tab PO DAILY 09/04/17 Trazodone HCl 200 mg PO HS 09/04/17 Lurasidone HCl [Latuda -] 20 mg PO HS 11/05/17 Family Disease History - Family Disease History Family Disease History: Heart Disease: Father (, alcoholism), Other: Mother (cancer, ), Sister (alive, cancer) Review of Systems - Review of Systems Constitutional: reports: No Symptoms Eyes: reports: No Symptoms HENT: reports: No Symptoms Neck: reports: No Symptoms Cardiovascular: reports: No Symptoms Respiratory: reports: No Symptoms Gastrointestinal: reports: No Symptoms Genitourinary: reports: No Symptoms Musculoskeletal: reports: No Symptoms Integumentary: reports: No Symptoms Neurological: reports: No Symptoms Endocrine: reports: No Symptoms Hematology/Lymphatic: reports: No Symptoms Psychiatric: reports: No Symptoms Physical Examination Vital Signs: Vital Signs Temperature 98.0 F 04/01/18 06:53 Pulse Rate 64 04/01/18 06:53 Respiratory Rate 18 04/01/18 06:53 Blood Pressure 103/65 04/01/18 06:53 O2 Sat by Pulse Oximetry (%) 99 04/01/18 06:53 Constitutional: Yes: Well Nourished, No Distress, Calm Eyes: Yes: WNL, Conjunctiva Clear, EOM Intact HENT: Yes: WNL, Atraumatic, Normocephalic Neck: Yes: WNL, Supple, Trachea Midline Cardiovascular: Yes: WNL, Regular Rate and Rhythm, S1, S2 Respiratory: Yes: WNL, Regular, CTA Bilaterally Gastrointestinal: Yes: WNL, Normal Bowel Sounds, Soft ...Rectal Exam: Yes: Deferred Renal/: Yes: WNL Musculoskeletal: Yes: WNL Extremities: Yes: WNL Edema: No Peripheral Pulses WNL: Yes Peripheral Pulses: Left Radial: 4+, Right Radial: 4+, Left Doralis Pedis: 3+, Right Dorsalis Pedis: 3+, Left Femoral: 3+, Right Femoral: 3+ Integumentary: Yes: WNL Neurological: Yes: WNL, Alert, Oriented ...Motor Strength: WNL Psychiatric: Yes: WNL, Alert, Oriented Labs: reviewed 01/12 Imaging - Results EKG: Image Reviewed, Other (sinus bradycardia) Assessment/Plan patient is a 57 y/o female that presents for ect, labs and ekg reviewed patient is medically optimized for procedure informed consent, risks/benefits to be obtained by Dr Forrest
[2018-04-01] MEDS ORDERED: KETAMINE HCL 500 MG/10 ML VIAL ONE (07:25)
[2018-04-01] MEDS ORDERED: ACETAMINOPHEN 325 MG TABLET (FP) ONE (08:10)
[2018-04-01 08:35] VITALS: TEMP 97.6
[2018-04-01 09:12] VITALS: BP 123/69; PULSE 61
== END 2018-04-01 09:05 | disposition home or self-care (01) ==
LOC: FECT 05:36
PROVIDERS: ATTEND Psychiatry & Neurology Psychiatry
PROC: GZB4ZZZ Other Electroconvulsive Therapy (ICD-10-PCS; principal; 2018-04-01 07:00)
DX: F33.2 Major depressive disorder, recurrent severe without psychotic features (principal)
CPT/HCPCS: 90870; 94760

== ENCOUNTER 2018-04-17 05:38 | Day surgery (SDC) | payer OTHER ==
[2018-04-17 06:11] VITALS: BMI 19.5
[2018-04-17] MEDS ORDERED: KETAMINE HCL 500 MG/10 ML VIAL ONE (07:01)
[2018-04-17] MEDS ORDERED: ACETAMINOPHEN 325 MG TABLET (FP) PO PRN (07:45)
[2018-04-17 08:12] VITALS: TEMP 97.9
[2018-04-17 08:26] VITALS: BP 133/74; PULSE 66
== END 2018-04-17 08:30 | disposition home or self-care (01) ==
LOC: FECT 05:38
PROVIDERS: ATTEND Psychiatry & Neurology Psychiatry
PROC: GZB4ZZZ Other Electroconvulsive Therapy (ICD-10-PCS; principal; 2018-04-17 07:30)
DX: F33.2 Major depressive disorder, recurrent severe without psychotic features (principal)
CPT/HCPCS: 90870; 94760

== ENCOUNTER 2018-05-01 05:39 | Day surgery (SDC) | payer OTHER ==
[2018-05-01 06:18] VITALS: BMI 18.9
[2018-05-01] MEDS ORDERED: KETAMINE HCL 500 MG/10 ML VIAL ONE (07:04)
[2018-05-01 08:14] VITALS: TEMP 98.3
[2018-05-01 08:36] VITALS: BP 137/71; PULSE 62
== END 2018-05-01 08:40 | disposition home or self-care (01) ==
LOC: FECT 05:39
PROVIDERS: ATTEND Psychiatry & Neurology Psychiatry
PROC: GZB4ZZZ Other Electroconvulsive Therapy (ICD-10-PCS; principal; 2018-05-01 07:15)
DX: F33.2 Major depressive disorder, recurrent severe without psychotic features (principal)
CPT/HCPCS: 90870; 94760

== ENCOUNTER 2018-05-22 05:51 | Day surgery (SDC) | payer OTHER ==
[2018-05-13 13:25] VITALS: BMI 19.1
[2018-05-22 07:17] VITALS: TEMP 98.7
[2018-05-22] MEDS ORDERED: ONDANSETRON 4 MG/2 ML VIAL IVPUSH PRN (07:17)
--- NOTE | 2018-05-22 07:27 | HP ---
Admitting History and Physical - Admission History of Present Illness: patient is a 57 y/o female with a past medical history of borderline personality disorder and etoh dependency. Patient presents for ect, her last ect was 05/01/18. Patient reports feeling well, she denies any medications changes. She reports compliance with prescribed medications. Patient denies any recent illnesses or hospitalizations. Patient reports a significant improvement in depressive symptoms since starting ect. She denies any suicidal or homicidal ideation, visual or auditory hallucinations. History Source: Patient Limitations to Obtaining History: No Limitations - Smoking History Smoking history: Current some day smoker Have you smoked in the past 12 months: Yes If you are a former smoker, when did you quit?: WAS IN HOSPITAL X 2 MONTHS, D/C TODAY SMOKED " A LITTLE " - Alcohol/Substance Use Hx Alcohol Use: No History of Substance Use: reports: None - Social History Usual Living Arrangement: Yes: With Spouse ADL: Independent History of Recent Travel: No Home Medications - Allergies Allergies/Adverse Reactions: Allergies Allergy/AdvReac Type Severity Reaction Status Date / Time codeine Allergy Severe Swelling Verified 05/01/18 06:10 sulfamethoxazole Allergy Severe Rash Verified 05/01/18 06:10 [From Bactrim] trimethoprim [From Bactrim] Allergy Severe Rash Verified 05/01/18 06:10 - Home Medications Home Medications: Ambulatory Orders Lamotrigine [Lamictal] 200 mg PO HS 09/04/17 [place] Carbonate [Eskalith -] 450 mg PO HS 09/04/17 Multivitamins [Multivit ([facility])] 1 tab PO DAILY 09/04/17 Trazodone HCl 200 mg PO HS 09/04/17 Lurasidone HCl [Latuda -] 20 mg PO HS 11/05/17 Family Disease History - Family Disease History Family Disease History: Heart Disease: Father (, alcoholism), Other: Mother (cancer, ), Sister (alive, cancer) Review of Systems - Review of Systems Constitutional: reports: No Symptoms Eyes: reports: No Symptoms HENT: reports: No Symptoms Neck: reports: No Symptoms Cardiovascular: reports: No Symptoms Respiratory: reports: No Symptoms Gastrointestinal: reports: No Symptoms Genitourinary: reports: No Symptoms Musculoskeletal: reports: No Symptoms Integumentary: reports: No Symptoms Neurological: reports: No Symptoms Endocrine: reports: No Symptoms Hematology/Lymphatic: reports: No Symptoms Psychiatric: reports: No Symptoms Physical Examination Vital Signs: Vital Signs Temperature 98.7 F 05/22/18 07:15 Pulse Rate 68 05/22/18 07:15 Respiratory Rate 18 05/22/18 07:15 Blood Pressure 112/70 05/22/18 07:15 O2 Sat by Pulse Oximetry (%) 99 05/22/18 07:15 Constitutional: Yes: Well Nourished, No Distress, Calm, Thin Eyes: Yes: WNL, Conjunctiva Clear, EOM Intact HENT: Yes: WNL, Atraumatic, Normocephalic Neck: Yes: WNL, Supple, Trachea Midline Cardiovascular: Yes: WNL, Regular Rate and Rhythm, S1, S2 Respiratory: Yes: WNL, Regular, CTA Bilaterally Gastrointestinal: Yes: WNL, Normal Bowel Sounds, Soft ...Rectal Exam: Yes: Deferred Renal/: Yes: WNL Musculoskeletal: Yes: WNL Extremities: Yes: WNL Edema: No Peripheral Pulses WNL: Yes Peripheral Pulses: Left Radial: 4+, Right Radial: 4+, Left Doralis Pedis: 3+, Right Dorsalis Pedis: 3+, Left Femoral: 3+, Right Femoral: 3+ Integumentary: Yes: WNL Neurological: Yes: WNL, Alert, Oriented ...Motor Strength: WNL Psychiatric: Yes: WNL, Alert, Oriented Labs: reviewed 01/12 Imaging - Results EKG: Image Reviewed, Other (sinsus bradycardia) Assessment/Plan patient is a 57 y/o female that presents for ect, labs and ekg reviewed patient is medically optimized for procedure informed consent, risks/benefits to be obtained by Dr Forrest
[2018-05-22] MEDS ORDERED: KETAMINE HCL 500 MG/10 ML VIAL ONE (08:12)
[2018-05-22 09:48] VITALS: BP 140/80; PULSE 64
== END 2018-05-22 09:45 | disposition home or self-care (01) ==
LOC: FECT 05:51
PROVIDERS: ATTEND Psychiatry & Neurology Psychiatry
PROC: GZB4ZZZ Other Electroconvulsive Therapy (ICD-10-PCS; principal; 2018-05-22 08:00)
DX: F33.2 Major depressive disorder, recurrent severe without psychotic features (principal)
CPT/HCPCS: 90870; 94760

== ENCOUNTER 2018-06-05 05:47 | Day surgery (SDC) | payer OTHER ==
[2018-06-02 11:21] VITALS: BMI 19.1
[2018-06-05 06:51] VITALS: TEMP 98
[2018-06-05] MEDS ORDERED: KETAMINE HCL 500 MG/10 ML VIAL ONE (07:33)
[2018-06-05 09:00] VITALS: BP 133/69; PULSE 62
== END 2018-06-05 09:10 | disposition home or self-care (01) ==
LOC: FECT 05:47
PROVIDERS: ATTEND Psychiatry & Neurology Psychiatry
PROC: GZB4ZZZ Other Electroconvulsive Therapy (ICD-10-PCS; principal; 2018-06-05 07:15)
DX: F33.2 Major depressive disorder, recurrent severe without psychotic features (principal)

== ENCOUNTER 2018-07-29 05:39 | Day surgery (SDC) | payer OTHER ==
--- NOTE | 2018-07-29 07:06 | HP ---
Admitting History and Physical - Admission History of Present Illness: Patient is a 57 y/o with a past medical history of borderline personality disorder and etoh dependency. Patient presents for ect, her last ect was . Patient reports feeling well, she denies any changes to her medications. Patient denies any recent illnesses or hospitalizations. She reports compliance with prescribed medications. History Source: Patient Limitations to Obtaining History: No Limitations - Smoking History Smoking history: Current some day smoker Have you smoked in the past 12 months: Yes If you are a former smoker, when did you quit?: WAS IN HOSPITAL X 2 MONTHS, D/C TODAY SMOKED " A LITTLE " - Alcohol/Substance Use Hx Alcohol Use: No History of Substance Use: reports: None - Social History Usual Living Arrangement: Yes: With Spouse ADL: Independent History of Recent Travel: No Home Medications - Allergies Allergies/Adverse Reactions: Allergies Allergy/AdvReac Type Severity Reaction Status Date / Time codeine Allergy Severe Swelling Verified 05/01/18 06:10 sulfamethoxazole Allergy Severe Rash Verified 05/01/18 06:10 [From Bactrim] trimethoprim [From Bactrim] Allergy Severe Rash Verified 05/01/18 06:10 - Home Medications Home Medications: Ambulatory Orders Lamotrigine [Lamictal] 200 mg PO HS 09/04/17 [place] Carbonate [Eskalith -] 450 mg PO HS 09/04/17 Multivitamins [Multivit ([facility])] 1 tab PO DAILY 09/04/17 traZODone HCL [Trazodone HCl] 200 mg PO HS 09/04/17 Lurasidone HCl [Latuda -] 20 mg PO HS 11/05/17 Family Disease History - Family Disease History Family Disease History: Heart Disease: Father (, alcoholism), Other: Mother (cancer, ), Sister (alive, cancer) Review of Systems - Review of Systems Constitutional: reports: No Symptoms Eyes: reports: No Symptoms HENT: reports: No Symptoms Neck: reports: No Symptoms Cardiovascular: reports: No Symptoms Respiratory: reports: No Symptoms Gastrointestinal: reports: No Symptoms Genitourinary: reports: No Symptoms Musculoskeletal: reports: No Symptoms Integumentary: reports: No Symptoms Neurological: reports: No Symptoms Endocrine: reports: No Symptoms Hematology/Lymphatic: reports: No Symptoms Psychiatric: reports: No Symptoms Imaging - Results EKG: Image Reviewed, Other (nsr) Assessment/Plan Patient is a 57 y/o female that presents for ect, labs and ekg reviewed, patient is medically optimized for procedure
[2018-07-29 07:50] VITALS: TEMP 98; BMI 19.1
[2018-07-29 08:07] LABS: HEMATOCRIT 42.3 % (32.4-45.2); HEMOGLOBIN 13.9 GM/dl (10.7-15.3); MCH 30.3 pg (25.7-33.7); MEAN CELL VOLUME 91.7 fl (80-96); MEAN PLT VOLUME 9.5 fl (7.5-11.1); PLATELET COUNT 309 K/MM3 (134-434); RBC 4.61 M/mm3 (3.60-5.2); RDW 13.1 % (11.6-15.6); WHITE BLOOD COUNT 9.8 K/mm3 (4.0-10.8)
[2018-07-29 08:10] LABS: ALBUMIN 4.4 g/dl (3.5-5.0); ALK PHOS 68 U/L (32-92); ANION GAP 6 MMOL/L (8-16); BILIRUBIN,TOTAL 0.6 mg/dl (0.2-1.0); BLOOD UREA NITROGEN 12 mg/dl (7-18); CALCIUM 9.7 mg/dl (8.4-10.2); CHLORIDE 107 mmol/L (98-107); CO2 25 mmol/L (22-28); CREATININE 0.8 mg/dl (0.6-1.3); GLUCOSE,RANDOM 84 mg/dl (74-106); POTASSIUM 3.8 mmol/L (3.5-5.1); SGOT/AST 21 U/L (10-42); SGPT/ALT 14 U/L (10-40); SODIUM 138 mmol/L (136-145); TOT PROT 7.3 g/dl (6.4-8.3)
[2018-07-29] MEDS ORDERED: KETAMINE HCL 500 MG/10 ML VIAL ONE (08:32)
[2018-07-29 09:46] VITALS: BP 134/80; PULSE 64
--- NOTE | 2018-07-29 10:41 | EKG ---
Test Reason : Blood Pressure : / mmHG Vent. Rate : 066 BPM Atrial Rate : 066 BPM P-R Int : 144 ms QRS Dur : 088 ms QT Int : 408 ms P-R-T Axes : 076 075 071 degrees QTc Int : 427 ms NORMAL SINUS RHYTHM WITH SINUS ARRHYTHMIA CANNOT RULE OUT ANTERIOR INFARCT , AGE UNDETERMINED ABNORMAL ECG WHEN COMPARED WITH ECG OF 17-JAN-2018 06:21, NO SIGNIFICANT CHANGE WAS FOUND Confirmed by Norberto Lu MD ([id number]) on 07/29/2018 10:41:11 AM Referred By: Ramesh Forrest Confirmed By:Norberto Lu MD
== END 2018-07-29 09:50 | disposition home or self-care (01) ==
LOC: FECT 05:39
PROVIDERS: ATTEND Psychiatry & Neurology Psychiatry
PROC: GZB4ZZZ Other Electroconvulsive Therapy (ICD-10-PCS; principal; 2018-07-29 08:00)
DX: F33.2 Major depressive disorder, recurrent severe without psychotic features (principal)
CPT/HCPCS: 36415; 80053; 85027; 90870; 93005; 94760